=== PATIENT | male | born 1965 | race Caucasian/White ===

== ENCOUNTER 2024-06-25 20:24 | Observation (INO) | payer OTHER ==
[2024-06-25 20:43] VITALS: BMI 25.7
[2024-06-25] MEDS ORDERED: ACETAMINOPHEN INJECTION 100 ML ONE (21:33)
[2024-06-25 21:53] LABS: BASO % 0.5 % (0-2.0); EOS % 1.6 % (0-4.5); HEMATOCRIT 46.6 % (35.4-49); LYMPH % 13.8 % (8-40); MCH 32.2 pg (25.7-33.7); MCHC 34.4 g/dl (32.0-35.9); MEAN CELL VOLUME 93.5 fl (80-96); MEAN PLT VOLUME 7.8 fl (7.5-11.1); MONO % 4.7 % (3.8-10.2); NEUT % 79.4 % (42.8-82.8); PLATELET COUNT 223 10^3/uL (134-434); RBC 4.98 M/mm3 (4.00-5.60); RDW 12.7 % (11.9-15.9); WHITE BLOOD COUNT 14.3 K/mm3 (4.0-10.0)
[2024-06-25 22:01] LABS: INR 1.01 (0.83-1.09)
[2024-06-25 22:04] LABS: ACTIVATED PTT 28.5 SECONDS (25.2-36.5)
[2024-06-25] MEDS: SODIUM CHLORIDE 0.9% 500 ML INFUS.BAG IV ONE (22:10)
[2024-06-25] MEDS: ACETAMINOPHEN 1000 MG/100 ML BAG IVPB ONE (22:10)
[2024-06-25 22:16] LABS: BLOOD UREA NITROGEN 15.7 mg/dL (7-18); CALCIUM 9.3 mg/dL (8.5-10.1)
[2024-06-25 22:17] LABS: MAGNESIUM 2.1 mg/dL (1.8-2.4)
[2024-06-25 22:19] LABS: CREATININE 1.2 mg/dL (0.55-1.3)
[2024-06-25 22:20] LABS: BILIRUBIN,TOTAL 0.4 mg/dL (0.2-1); TOT PROT 7.2 g/dl (6.4-8.2)
[2024-06-25] MEDS ORDERED: DIPHTH,PERTUSS(ACELL),TET 0.5 ML DISP.SYRIN IM ONE (22:53)
[2024-06-25] MEDS: DIPHTH,PERTUSS(ACELL),TET 0.5 ML DISP.SYRIN IM ONE (22:56)
[2024-06-26] MEDS: DEXAMETHASONE SOD PHOSPHATE 10 MG/1 ML VIAL IVPUSH ONE (00:41)
[2024-06-26] MEDS ORDERED: DOCUSATE SODIUM 100 MG CAPSULE (FP) PO PRN (01:40)
[2024-06-26] MEDS: SODIUM CHLORIDE 0.45% 1,000 ML IV SCH (02:42)
[2024-06-26] MEDS: SODIUM CHLORIDE 0.9% 500 ML INFUS.BAG IV ONE (02:42)
[2024-06-26] MEDS: ACETAMINOPHEN 500 MG TABLET (FP) PO PRN (06:12)
[2024-06-26] MEDS: KETOROLAC TROMETHAMINE 15 MG/ML VIAL IVPUSH PRN (07:52)
[2024-06-26 08:11] LABS: HEMATOCRIT 41.1 % (35.4-49); HEMOGLOBIN 14.3 GM/dL (11.7-16.9); MCH 32.5 pg (25.7-33.7); MCHC 34.9 g/dl (32.0-35.9); MEAN CELL VOLUME 93.3 fl (80-96); MEAN PLT VOLUME 7.9 fl (7.5-11.1); PLATELET COUNT 194 10^3/uL (134-434); RBC 4.41 M/mm3 (4.00-5.60); RDW 12.7 % (11.9-15.9); WHITE BLOOD COUNT 8.3 K/mm3 (4.0-10.0)
[2024-06-26 08:31] LABS: POTASSIUM 4.1 mmol/L (3.5-5.1)
[2024-06-26 08:42] LABS: BLOOD UREA NITROGEN 12.6 mg/dL (7-18); CALCIUM 8.4 mg/dL (8.5-10.1)
[2024-06-26 08:46] LABS: CREATININE 0.9 mg/dL (0.55-1.3)
[2024-06-26 09:50] LABS: ANISOCYTOSIS 0; HELMET CELLS 0; HOWELL-JOLLY BODIES 0; MACROCYTOSIS 0; OVALOCYTE 0; ROULEAU 0; SICKELED CELLS 0; TARGET CELLS 0; TEAR DROP CELLS 0; TOXIC GRANULATION 0
[2024-06-26] MEDS: ACETAMINOPHEN 1000 MG/100 ML BAG IVPB PRN (13:02)
[2024-06-26] MEDS: ATORVASTATIN CA 10 MG TABLET (FP) PO SCH (21:30)
[2024-06-27 07:37] LABS: BASO % 0.3 % (0-2.0); EOS % 0.2 % (0-4.5); HEMATOCRIT 39.6 % (35.4-49); HEMOGLOBIN 13.5 GM/dL (11.7-16.9); LYMPH % 26.7 % (8-40); MCHC 34.1 g/dl (32.0-35.9); MEAN CELL VOLUME 93.7 fl (80-96); MONO % 7.9 % (3.8-10.2); NEUT % 64.9 % (42.8-82.8); PLATELET COUNT 196 10^3/uL (134-434); RBC 4.23 M/mm3 (4.00-5.60); RDW 12.8 % (11.9-15.9); WHITE BLOOD COUNT 10.9 K/mm3 (4.0-10.0)
[2024-06-27 07:51] LABS: POTASSIUM 3.6 mmol/L (3.5-5.1)
[2024-06-27 08:02] LABS: BLOOD UREA NITROGEN 11.9 mg/dL (7-18); CALCIUM 8.4 mg/dL (8.5-10.1); MAGNESIUM 2.1 mg/dL (1.8-2.4)
[2024-06-27 08:05] LABS: PHOSPHOROUS 3.2 mg/dL (2.5-4.9)
[2024-06-27 08:06] LABS: CREATININE 0.9 mg/dL (0.55-1.3)
[2024-06-27] MEDS: FOLIC ACID 1 MG TABLET (FP) PO SCH (10:23)
[2024-06-27] MEDS: THIAMINE 100 MG TABLET PO SCH (10:23)
[2024-06-27] MEDS: MULTIVITAMINS THER W-MINERALS COMBO TABLET (FP) PO SCH (10:24)
[2024-06-27] MEDS: ACETAMINOPHEN 500 MG TABLET (FP) PO PRN (20:46)
[2024-06-28] MEDS: ACETAMINOPHEN 1000 MG/100 ML BAG IVPB ONE (06:24)
[2024-06-28 07:53] LABS: BASO % 0.5 % (0-2.0); EOS % 2.2 % (0-4.5); HEMATOCRIT 41.6 % (35.4-49); HEMOGLOBIN 14.1 GM/dL (11.7-16.9); LYMPH % 17.3 % (8-40); MCH 32.2 pg (25.7-33.7); MEAN CELL VOLUME 94.7 fl (80-96); MEAN PLT VOLUME 8.1 fl (7.5-11.1); MONO % 6.6 % (3.8-10.2); NEUT % 73.4 % (42.8-82.8); PLATELET COUNT 179 10^3/uL (134-434); RBC 4.39 M/mm3 (4.00-5.60); RDW 12.9 % (11.9-15.9); WHITE BLOOD COUNT 10.2 K/mm3 (4.0-10.0)
[2024-06-28 08:07] LABS: POTASSIUM 3.8 mmol/L (3.5-5.1)
[2024-06-28 08:10] LABS: BLOOD UREA NITROGEN 14.1 mg/dL (7-18); CALCIUM 8.3 mg/dL (8.5-10.1); MAGNESIUM 1.9 mg/dL (1.8-2.4)
[2024-06-28 08:13] LABS: CREATININE 0.7 mg/dL (0.55-1.3); PHOSPHOROUS 3.4 mg/dL (2.5-4.9)
[2024-06-29 10:06] VITALS: BP 132/76; PULSE 83; RESP 16; TEMP 98.6
== END 2024-06-29 12:06 | disposition home or self-care (01) ==
LOC: JER 20:24 → JERBED 06-26 00:21 → J4W 06-26 04:52
PROVIDERS: ADMIT Internal Medicine; ATTEND Internal Medicine
PROC: 3E033NZ Introduction of Analgesics, Hypnotics, Sedatives into Peripheral Vein, Percutaneous Approach (ICD-10-PCS; principal; 2024-06-26)
PROC: 3E033GC Introduction of Other Therapeutic Substance into Peripheral Vein, Percutaneous Approach (ICD-10-PCS; 2024-06-26)
PROC: 3E0234Z Introduction of Serum, Toxoid and Vaccine into Muscle, Percutaneous Approach (ICD-10-PCS; 2024-06-26)
PROC: 3E0333Z Introduction of Anti-inflammatory into Peripheral Vein, Percutaneous Approach (ICD-10-PCS; 2024-06-26)
PROC: 3E0337Z Introduction of Electrolytic and Water Balance Substance into Peripheral Vein, Percutaneous Approach (ICD-10-PCS; 2024-06-26)
PROC: 0HQ1XZZ Repair Face Skin, External Approach (ICD-10-PCS; 2024-06-26)
DX: S01.81XA Laceration without foreign body of other part of head, initial encounter (principal); R55 Syncope and collapse; F10.920 Alcohol use, unspecified with intoxication, uncomplicated; E78.5 Hyperlipidemia, unspecified; W18.39XA Other fall on same level, initial encounter; Y93.89 Activity, other specified; Y92.002 Bathroom of unspecified non-institutional (private) residence as the place of occurrence of the external cause; Z87.891 Personal history of nicotine dependence; Z23 Encounter for immunization
CPT/HCPCS: 12011-25; 36415; 70450-TC; 71045-TC-FY; 71275-TC; 72125-TC; 72141-TC; 73090-TC-LT-FY; 73090-TC-RT-FY; 73130-TC-LT-FY; 73130-TC-RT-FY; 74174-TC; 80048; 80053; 80307; 82607; 82746; 82962; 83735; 84100; 84484; 85025; 85610; 85730; 86850; 86900; 86901; 90471; 90715; 93005; 93010; 93306-TC; 93308; 96374; 96375; 96376; 99285-25; G0378; J0131; J1100; Q9967

== ENCOUNTER 2024-09-07 06:53 | Day surgery (SDC) | payer OTHER ==
[2024-09-06 11:33] VITALS: BMI 25.0
[2024-09-07 09:23] VITALS: TEMP 97.5
[2024-09-07 09:42] VITALS: BP 120/88; PULSE 61; RESP 17
== END 2024-09-07 10:20 | disposition home or self-care (01) ==
LOC: JASU-ENDO 06:53
PROVIDERS: ATTEND Internal Medicine Gastroenterology
PROC: 0DBC8ZX Excision of Ileocecal Valve, Via Natural or Artificial Opening Endoscopic, Diagnostic (ICD-10-PCS; 2024-09-07)
PROC: 0DBK8ZX Excision of Ascending Colon, Via Natural or Artificial Opening Endoscopic, Diagnostic (ICD-10-PCS; principal; 2024-09-07 08:00)
DX: Z12.11 Encounter for screening for malignant neoplasm of colon (principal); D12.2 Benign neoplasm of ascending colon; K57.30 Diverticulosis of large intestine without perforation or abscess without bleeding; K64.8 Other hemorrhoids
CPT/HCPCS: 88305-TC